=== PATIENT | male | born 1945 | race Caucasian/White ===

== ENCOUNTER 2024-01-07 07:23 | Emergency (ER) | payer OTHER, SELFPAY ==
[2024-01-07 07:24] VITALS: BP 158/93
[2024-01-07 08:09] VITALS: BP 119/84
--- NOTE | 2024-01-07 08:11 | ED.GENMED ---
History of Present Illness
General
Chief Complaint: Cardiac Symptoms
Source: patient
Time Seen by Provider: 01/07/24 07:52
History of Present Illness
History of Present Illness:
78yoM with a history of atrial fibrillation, hypertension, hyperlipidemia, and asthma presenting for evaluation of shortness of breath. Patient reports 2 months of shortness of breath. He states he will wake up around 4 to 5 AM every morning
feeling like he cannot catch his breath. His dyspnea seems to be worse if he is lying flat. He reports a dry cough as well. He denies any associated chest pain, palpitations, or leg swelling. He has a history of asthma but denies any associated
wheezing or chest tightness. Patient follows with [place] [facility] for his atrial fibrillation. He is currently maintained on Tikosyn, metoprolol, and Xarelto. He underwent cardioversion last week.
Past History
Past History
ED Past Medical History: Arrthythmia (Paroxysmal atrial fibrillation), Asthma, GERD, HTN, Hypercholesterolemia and Other (Obstructive sleep apnea; environmental allergies)
ED Past Surgical History: Cardiac (A-fib ablation 2012, 2020), Tonsilectomy and Other (Umbilical hernia repair 2015)
Social History
Tobacco: Former smoker
Alcohol: Occasional
Personal:
Living: with family
Employment: Retired
Family History
Family History: Other (Noncontributory)
Phy Exam
General Physical Exam
General Presentation: well appearing and no apparent distress
General age: appears stated age
General Skin: warm and dry
General Habitus: normal
General Mental: alert
ENT Exam
ENT Exam: normocephalic
Cardiovascular Exam
Cardiovascular Exam: regular rate/rhythm, no edema and no murmur
Pulmonary Exam
Pulmonary Exam: lungs clear, no respiratory distress, no rales, no crackles, no rhonchi and no wheezing
[place] Coma Scale
Eye Opening: Spontaneous
Verbal Response: Oriented
Motor Response: Obeys Commands
GCS Total Score: 15
Skin Exam
Skin Exam: normal color and warm/dry
Psychiatric Exam
Psychiatric Exam: normal mood/affect
Course
Orders/Labs/Results
Orders:
Orders
01/07/24 07:28
ECG [Electrocardiogram (*1)] Urgent
Reason for Study: Shortness of Breath
EKG- Treatment ONCE
01/07/24 07:56
Electrocardiogram (*1) Urgent
Reason for Study: Shortness of Breath
EKG- Treatment ONCE
01/07/24 08:08
Cardiac Monitoring- Treatment ONCE
01/07/24 08:09
CR Chest - 2 Views Urgent
Comment:
Reason For Exam: SOB
01/07/24 08:47
Complete Blood Count/With Diff Urgent
01/07/24 09:29
Comprehensive Metabolic Panel Urgent
NT-proBNP Urgent
Troponin I Urgent
Abnormal Lab Results
01/07/24 01/07/24
08:47 09:29
WBC 4.2 L 10^3/uL
(4.8-10.8)
RBC 4.23 L 10^6/uL
(4.70-6.10)
Hct 38.5 L %
(39.0-52.0)
MCH 32.2 H pg
(27.0-31.0)
Monocytes % 11.0 H %
(1.7-9.3)
Glucose 137 H mg/dl
(70-99)
Total Protein 6.0 L g/dl
(6.3-8.2)
01/07/24 08:47
01/07/24 09:29
Vital Signs
Initial and Last Documented VS:
Initial Vital Signs
Temp Pulse Resp BP Pulse Ox
98.1 F 63 18 158/93 98
01/07/24 07:24 01/07/24 07:24 01/07/24 07:24 01/07/24 07:24 01/07/24 07:24
Last Documented Vital Signs
Temp Pulse Resp BP Pulse Ox
98.1 F 65 13 112/75 96
01/07/24 07:24 01/07/24 10:30 01/07/24 10:30 01/07/24 10:00 01/07/24 10:30
MDM/Problems Addressed
Differential Diagnosis Includes:
78yoM here with SOB x 2 months. He c/o dyspnea that wakes him up from sleep every morning at 4-5am. No CP. Oxygen saturation 98% on room air. Remainder of vitals stable. He is well appearing in no distress. Lungs CTA. No peripheral edema on exam.
Differential diagnosis includes but is not limited to: pneumonia, CHF, asthma, ACS
Initial ED plan: Check cardiac labs, BNP, EKG, and CXR.
*EKG
Interpreted by ED Provider?: Yes
EKG Intrepretation Date: 01/07/24
Heart Rate: 57
Rate: bradycardiac
Rhythm: sinus
[place]: normal axis
Interval: first degree heart block
QRS Pattern: normal QRS
Ischemia: no ischemia
*Critical Care Note
Total Time (30-74mins, 75-104mins- exclusive of procedures): Not Applicable
Update Note
Update Note:
Labs overall unremarkable. BNP normal and no pulmonary edema on CXR. EKG shows sinus bradycardia without ischemic changes and troponin WNL. No episodes of hypoxia during ED stay. Unclear etiology of symptoms. He was seen by his surgical garment fitter last
week for these symptoms and he was told that he likely has sleep apnea. He has a sleep study scheduled 1-2 months from now. No indication for hospitalization. Advised f/u with PCP and welding machine operator. ED return precautions discussed. He was discharged
in stable condition.
ED Attending Note
-
Portions of this chart may have been created with voice recognition software.� Occasional wrong word or��sound alike� substitutions may have occurred due to the inherent limitations of voice recognition software.
Discharge Plan
Departure
Patient Disposition: Home (Routine Discharge)
Date of Disposition: 01/07/24
Time of Disposition: 10:35
Patient with high blood pressure during this ER visit?: No
Discharge Problem:
Shortness of breath
Instructions: Shortness of breath
Prescriptions:
No Action
lisinopril 20 MG tablet
20 mg PO DAILY
finasteride 5 MG tablet
5 mg PO DAILY
omega 1-pkc-krb-fish oil [Fish Oil] 1,200 MG capsule
1,200 mg PO DAILY
atorvastatin 80 mg Tablet
80 mg PO DAILY
amlodipine 2.5 mg Tablet
2.5 mg PO DAILY
montelukast 10 mg Tablet
10 mg PO DAILY
Zyrtec 10 mg Capsule
10 mg PO DAILY
fluticasone propionate 50 mcg/actuation Blister With Device
1 inh INHALATION DAILY
albuterol sulfate [ProAir HFA] 90 mcg/actuation Hfa Aerosol Inhaler
2 puff INHALATION PRN PRN (Reason: SOB)
Xarelto 20 mg Tablet
20 mg PO DAILY
fluticasone furoate-vilanterol [Breo Ellipta] 200-25 mcg/dose Blister With Device
1 inh INHALATION DAILY
metoprolol succinate 50 mg Tablet Extended Release 24 Hr
50 mg PO HS Qty: 30 11RF
metoprolol succinate 100 mg Tablet Extended Release 24 Hr
100 mg PO DAILY Qty: 30 11RF
dofetilide [Tikosyn] 250 mcg capsule
250 mcg PO Q12H Qty: 60 11RF
Referrals:
Yevgeniy Unger DO [Family Provider] -
Activity Restrictions/Additional Instructions:
Please follow-up with your family doctor and your welding machine operator. Return to the ER with any new or worsening symptoms.
Interventions
Interventions:
*Risk Screen - Suicide Last Done: 01/07/24 08:53
*General Assessment Last Done: 01/07/24 08:53
*Neglect/Abuse Screening Last Done: 01/07/24 08:53
ED- Fall Risk Assessment Last Done: 01/07/24 08:53
*ED COVID-19 Vaccine History Last Done: 01/07/24 08:53
*Nursing Disposition Last Done: 01/07/24 10:40
ED- Cardiac Assessment Last Done: 01/07/24 08:53
ED- Pulmonary Assessment Last Done: 01/07/24 08:53
Discharge Date and Time
Discharge Date/Time: 01/07/24 10:40
Print Language: HONG KONGER
[2024-01-07 09:00] VITALS: BP 120/82
[2024-01-07 09:00] LABS: % Basophils 0.2 % (0-2); % Eosinophils 3.1 % (0-6); % Immature Granulocytes 0.5 % (0-0.5); % Neutrophils 57.2 % (42.2-75.2); Absolute Eosinophils 0.1 10^3/uL (0-0.7); Absolute Lymphocytes 1.2 10^3/uL (1.2-3.4); Absolute Monocytes 0.5 10^3/uL (0.1-0.6); Absolute Neutrophils 2.4 10^3/uL (1.4-6.5); Hematocrit 38.5 % (39.0-52.0); Hemoglobin 13.6 g/dL (13.0-18.0); Mean Corp Hgb Conc. 35.3 g/dL (33.0-37.0); Mean Corpuscular Hgb 32.2 pg (27.0-31.0); Nucleated Red Blood Cells % 0 % (-); Red Blood Cell Count 4.23 10^6/uL (4.70-6.10); Red Cell Dist. Width 12.5 % (11.5-14.5); White Blood Cell Count 4.2 10^3/uL (4.8-10.8)
[2024-01-07 09:58] LABS: ALT (SGPT) 22 U/L (0-50); AST (SGOT) 23 U/L (17-59); Alkaline Phosphatase 62 U/L (38-126); Blood Urea Nitrogen 18 mg/dl (9-20); Calcium 9.3 mg/dl (8.4-10.2); Carbon Dioxide 23 mmol/L (22-30); Chloride 105 mmol/L (98-107); Glucose 137 mg/dl (70-99); Potassium 4.1 mmol/L (3.5-5.1); Sodium 137 mmol/L (135-145); eGFR > 60.00
[2024-01-07 10:00] VITALS: BP 112/75
[2024-01-07 10:11] LABS: NT-proBNP 259 pg/ml; Troponin I < 0.012 ng/ml
== END 2024-01-07 10:40 | disposition home or self-care (01) ==
LOC: EMR 07:23
PROVIDERS: Physician Assistant; EMERGENCY PHYSICIAN Emergency Medicine; FAMILY PHYSICIAN Internal Medicine
DX: R06.02 Shortness of breath (principal); I48.0 Paroxysmal atrial fibrillation; I10 Essential (primary) hypertension; G47.33 Obstructive sleep apnea (adult) (pediatric); J45.909 Unspecified asthma, uncomplicated; E78.00 Pure hypercholesterolemia, unspecified; K21.9 Gastro-esophageal reflux disease without esophagitis; Z87.891 Personal history of nicotine dependence; Z79.01 Long term (current) use of anticoagulants; Z79.899 Other long term (current) drug therapy; Z91.048 Other nonmedicinal substance allergy status
CPT/HCPCS: 99284; 71046; 80053; 83880; 84484; 85025; 93005

== ENCOUNTER 2024-12-12 12:59 | Inpatient (IN) | payer OTHER, SELFPAY ==
--- NOTE | 2024-12-12 08:00 | W.PN.UPDATE ---
Update Note
Progress Note Update
Mr. Floyd presents in a 2-1 atypical atrial flutter�tachycardia. He admits to increased EtOH use recently. He is on dofetilide 125 mcg every 12 and after cardioversion we will plan increasing his dofetilide to 250 mcg every 12 hours. He will
work on EtOH reduction in his life. If he has further arrhythmia amiodarone or an atypical atrial flutter ablation could be considered and I would favor an atypical atrial flutter ablation. He will stay 1 night for 3 doses of dofetilide 250 mcg
every 12.
[2024-12-12 11:03] LABS: Hematocrit 41.3 % (39.0-52.0); Hemoglobin 13.9 g/dL (13.0-18.0); Mean Corp Hgb Conc. 33.7 g/dL (33.0-37.0); Mean Corpuscular Volume 96.5 fL (80.0-94.0); Platelet Count 118 10^3/uL (130-400); Red Cell Dist. Width 13.0 % (11.5-14.5)
[2024-12-12 11:18] LABS: ALT (SGPT) 26 U/L (0-50); AST (SGOT) 30 U/L (17-59); Albumin 4.4 g/dl (3.5-5.0); Alkaline Phosphatase 89 U/L (38-126); Blood Urea Nitrogen 24 mg/dl (9-20); Calcium 9.7 mg/dl (8.4-10.2); Carbon Dioxide 24 mmol/L (22-30); Chloride 108 mmol/L (98-107); Glucose 148 mg/dl (70-99); Magnesium 2.2 mg/dl (1.6-2.3); Potassium 4.5 mmol/L (3.5-5.1); Sodium 138 mmol/L (135-145); Total Protein 6.8 g/dl (6.3-8.2); eGFR > 60.00
--- NOTE | 2024-12-12 11:58 | W.CARD.TIKOS ---
Initiate Tikosyn
-
I verify that the patient has not taken any verapamil (Isoptin/Calan), ketoconazole (Nizoral), cimetidine (Tagamet), trimethoprim (Trimpex), trimethoprim/sulfamethoxazole (Bactrim), megesterol (Megace), prochlorperazine (Compazine),
hydrochlorothiazide (HCTZ), dolutegravir (Tivicay) or any Class I or Class III anti-arrhythmic within the last three days
AND
I verify that the patient has not taken amiodarone within the last THREE months, or that the patient's amiodarone plasma concentration is <0.3 mcg/mL.
Creatinine 0.7 mg/dL (0.7-1.3) 12/12/24 10:42
CrCl 133 calculated by me
Does patient have a Ventricular Conduction Abnormality: No
I have assessed the baseline QTc interval (using QT for heart rate less than 60 bpm) and deemed the patient is appropriate for Dofetilide therapy. I understand that Tikosyn is contraindicated if the QTc is >440msec (500msec in patients with
ventricular conduction abnormalities).
Baseline QTc (in msec): 450
QTc interval is greater than 440msec without conduction abnormality OR greater than 500msec with a conduction abnormality, but acceptable to proceed per Cardiology attending.
Reason for Administration with Prolonged QTc: Other Atrial Arrhythmia
Ordering Physician: Hernando Gomes
--- NOTE | 2024-12-12 12:12 | ITS.CL.CARDI ---
General Internal Medicine Physician - Cardioversion
Cardioversion
Procedure Report:
Date of Procedure:
Procedure: Cardioversion
Indication: Symptomatic atrial flutter
Performing Physician: Donna Edmondson DO [facility]
Anticoagulation: Xarelto
Antiarrhythmic therapy: Tikosyn
Technique: The patient was brought to the holding area. Signed informed consent was obtained. A time out was called and performed. The patient was anesthetized by the anesthesia service. Anticoagulation status was reviewed and appropriate. R2 pads
were placed anteriorly and posteriorly. A 200 J synchronized biphasic shock followed by a second attempt at 300J restored normal sinus rhythm without significant bradycardia. There were no complications. Post procedure EKG: Sinus rhythm with
first-degree AV block, QTc 450 ms.
Conclusion: Uncomplicated cardioversion from atypical atrial flutter to sinus rhythm.
Recommendation: Will admit for Tikosyn dose adjustment. Routine postprocedure care. Continue uninterrupted anticoagulation.
[2024-12-12 13:22] VITALS: BP 130/100; BMI 31.9
[2024-12-12 13:24] VITALS: BP 133/102
--- NOTE | 2024-12-12 13:30 | PTCARENOTE ---
pt admitted to room 2244 post cardioversion. Pt AAOX3, ambulating independently in room. Sinus rhythm on telemetry heart rate in 60-70s. pulses palpable. pt on room air, sat 98%. lung sounds clear. active bowel sounds. voiding in bathroom without
difficulty. pt updated on plan of care for increase in Tikosyn dose and timing of doses with ECGs.
--- NOTE | 2024-12-12 14:09 | W.PN.UPDATE ---
Update Note
Progress Note Update
Patient took his usual dose of Tikosyn 125 mcg every 12 hours at 0530 this morning. Patient then had successful CV and is now admitted for up titration of Tikosyn with a goal dose of 250 mcg every 12 hours. Will give first dose of Tikosyn 250 mcg
at 1600 this afternoon, second dose of Tikosyn 250 mcg at 0300 on Monday morning and the third and final dose will be given at 1400 on Monday afternoon. This is in an effort to get patient out for a concert he had planned to attend.
[2024-12-12 14:39] VITALS: BMI 31.9
[2024-12-12 15:18] VITALS: BP 114/81
[2024-12-12] MEDS: TIKOSYN 250 MCG PO (15:46)
[2024-12-12] MEDS: NORVASC 2.5 MG PO (15:47)
--- NOTE | 2024-12-12 17:25 | W.PN.CARDCBS ---
Addendum entered and electronically signed by Donna Edmondson DO 12/12/24 17:37:
I saw and examined the patient.
The Casing Fluid Tender's note was reviewed and I agree with the note.
Comment:
Patient seen and examined prior to planned cardioversion followed by admission for Tikosyn dose adjustment. Patient has a history of paroxysmal atrial flutter/fibrillation currently in atypical atrial flutter. No interruption of anticoagulation.
DC cardioversion successful after 2 attempts to sinus rhythm without complications. Will admit for Tikosyn dose adjustment. Lab work ordered. Pending lab work will plan to increase Tikosyn to 250 mcg twice daily with protocol EKG and telemetry
monitoring. Continue uninterrupted Xarelto. Case discussed with Dr. Gomes
General: No acute distress, AAOX3
Heart: Irregularly irregular. Positive S1-S2. No murmurs.
Lungs: CTA b/l, negative wheezes/rales/rhonchi
Abd: Positive BS, NT/ND, neg rebound/rigidity/guarding
Ext: Negative cyanosis/clubbing/edema
Neuro: nonfocal
Original Note:
Today's Communication / Plan
-
Increased Tikosyn dose to start this afternoon
Impression / Plan
-
PCP: Yevgeniy Unger
Primary hogshead wrecker: Dr. Arnold at [facility] cardiology
[place]: Dr. Hernando Gomes
Impression:
Admit for initiation uptitration of Tikosyn 12/12/24
s/p successful CV 12/12/24
Symptomatic Paroxysmal atrial flutter
Status post ablation of typical CTI flutter 04/30/2020
Paroxysmal atrial fibrillation
Status post PVI ablation 2012
Chronic anticoagulation with Xarelto
Hypertension
Hyperlipidemia
BPH
RAYRAY
Asthma
Anxiety
Plan:
-Patient previously loaded with Tikosyn 04/2023, but recurred with symptomatic Atach or flutter end of September and was recommended CV and admission for uptitration of Tikosyn to 250 mcg q 12 hours.
-Patient took his usual dose of Tikosyn 125 mcg 12/12/24 AM, so will start Tikosyn 250 mcg 12/12/24 PM.
-Patient reports that he was expecting to be d/c'd 12/13/24 AM, so will give Tikosyn 250 mcg at 1600 on 12/12/24 and then 0300 12/13/24 AM and 1400 12/13/24 afternoon and if ECG stable 2 hours later then he can be d/c'd.
-Continue Xarelto 20 mg daily
Progress Note - Chief Nurse
Subjective
Date of Service: December 12, 2024
Feels well, no pain following CV
Objective
Labs:
12/12/24 10:42
12/12/24 10:42
Labs
Hgb 13.9 g/dL (13.0-18.0) 12/12/24 10:42
Hct 41.3 % (39.0-52.0) 12/12/24 10:42
Plt Count 118 10^3/uL (130-400) L 12/12/24 10:42
Sodium 138 mmol/L (135-145) 12/12/24 10:42
Potassium 4.5 mmol/L (3.5-5.1) 12/12/24 10:42
BUN 24 mg/dl (9-20) H 12/12/24 10:42
Creatinine 0.7 mg/dL (0.7-1.3) 12/12/24 10:42
Glucose 148 mg/dl (70-99) H 12/12/24 10:42
Vital Signs and I&O:
Vital Signs
Temp Pulse Resp BP Pulse Ox
98.1 F 72 18 114/81 98
12/12/24 15:19 12/12/24 16:00 12/12/24 15:19 12/12/24 15:47 12/12/24 16:21
Vital Signs
Temp Pulse Resp BP Pulse Ox
98.1 F 72 18 114/81 98
12/12/24 15:19 12/12/24 16:00 12/12/24 15:19 12/12/24 15:47 12/12/24 16:21
Intake & Output
12/10/24 12/11/24 12/12/24 12/13/24
06:59 06:59 06:59 06:59
Intake Total 480 / 480
Balance 480 / 480
Physical Exam
Physical Exam
GEN: No distress, awake, Ox3
HEENT: supple, anicteric, mmm
LUNGS: RA. No wheeze
CV: SR on tele. Reg
[2024-12-12] MEDS: LIPITOR 80 MG PO (17:46)
[2024-12-12 18:51] VITALS: BP 140/98
[2024-12-12] MEDS: TOPROL XL 50 MG PO (21:00)
[2024-12-12] MEDS: ZESTRIL 10 MG PO (21:01)
[2024-12-12 22:34] VITALS: BP 121/95
[2024-12-13 02:11] VITALS: BMI 31.9
[2024-12-13 02:55] VITALS: BP 121/87
[2024-12-13] MEDS: TIKOSYN 250 MCG PO ×2 (02:56→14:01)
[2024-12-13 03:42] LABS: Blood Urea Nitrogen 23 mg/dl (9-20); Calcium 9.2 mg/dl (8.4-10.2); Carbon Dioxide 27 mmol/L (22-30); Chloride 107 mmol/L (98-107); Estimated Creatinine Clearance 98 ml/min; Glucose 110 mg/dl (70-99); Potassium 4.2 mmol/L (3.5-5.1); Sodium 139 mmol/L (135-145); eGFR > 60.00
[2024-12-13 04:30] LABS: Hepatitis C Antibody Negative (Negative)
--- NOTE | 2024-12-13 05:23 | PTCARENOTE ---
Pt NSR with 1st HB on monitor VSS. Pt received 2nd dose of Tikosyn. Pt denies any discomfort. Ambulates independently. Call goss w/in reach
[2024-12-13] MEDS: NORVASC 2.5 MG PO (08:36)
[2024-12-13] MEDS: PROSCAR 5 MG PO (08:36)
[2024-12-13] MEDS: ZESTRIL 10 MG PO (08:36)
[2024-12-13] MEDS: TOPROL XL 100 MG PO (08:36)
--- NOTE | 2024-12-13 09:54 | W.PN.UPDATE ---
Update Note
Progress Note Update
Full note to follow.
Presuming that QTc interval is normal after this afternoon's electrocardiogram, okay for discharge
Recommended medications at discharge:
Amlodipine 2.5 mg daily
Atorvastatin 80 mg daily
Lisinopril 10 mg twice daily
Metoprolol ER 100 mg a.m. and 50 mg p.m.
Rivaroxaban 20 mg daily
Dofetilide 250 mcg twice daily
If QT interval is prolonged, will need to reconsider
--- NOTE | 2024-12-13 12:17 | W.PN.CARDCBS ---
Addendum entered and electronically signed by Efrain Boss MD 12/13/24 18:27:
He offers no complaints
119/95, pulse 68, respiratory 15, weight is 106.6 kg, head neck exam unremarkable lungs are clear, regular rate and rhythm, abdomen benign, extremities without clubbing cyanosis or edema
ECG today: Sinus rhythm, QTc is 447 mV, heart rate 56 first-degree AV block
Hemoglobin is 13.9, platelets 118, potassium is 4.2, BUN and creatinine are 23 and 0.8
Impression:
Paroxysmal atrial fibrillation status post cardioversion December 12, 2024 admitted now for up titration of dofetilide
Status post PVI for A-fib in 2012, flutter ablation 2020
Hypertension
Hyperlipidemia
Sleep apnea
Asthma
Anxiety
Plan:
At present he looks well and his QTc on higher dose dofetilide is acceptable.
Will continue to observe. If QTc is acceptable after this afternoon's dose, okay for discharge.
We will arrange for cardiac follow-up.
Addendum entered and electronically signed by Cecy Devries PA-C 12/13/24 16:04:
[id number]
Original Note:
Today's Communication / Plan
-
Continue Tikosyn 250 mcg every 12 hours, tolerating thus far
Plan for discharge to home later today after third dose if QTc stable
Impression / Plan
-
PCP: Yevgeniy Unger
Primary media services specialist: Dr. Arnold at [facility] cardiology
Reconciliation Coordinator: Dr. Hernando Gomes
Impression:
Admit for initiation uptitration of Tikosyn 12/12/24
s/p successful CV 12/12/24
Symptomatic Paroxysmal atrial flutter
Status post ablation of typical CTI flutter 04/30/2020
Paroxysmal atrial fibrillation
Status post PVI ablation 2012
Chronic anticoagulation with Xarelto
Hypertension
Hyperlipidemia
BPH
RAYRAY
Asthma
Anxiety
Plan:
-Patient previously loaded with Tikosyn 04/2023, but recurred with symptomatic Atach or flutter end of September and was recommended CV and admission for uptitration of Tikosyn to 250 mcg q 12 hours.
-s/p CV 12/12/24, successful
-has remained in SB on review of tele overnight with HRs in 50s-60s
-QTc stable on 250mcg of tikosyn thus far. if stable after 3rd dose this afternoon, ok for DC to home
-On Toprol 100 mg every morning and 50 mg every afternoon, lisinopril 10 mg twice daily, Norvasc 2.5 mg daily. Blood pressures stable.
-Continue Xarelto 20 mg daily
-will arrange OP cardiac follow up
-total DC time 33 minutes
Progress Note - Civil Draftsman
Subjective
Date of Service: December 13, 2024
Feeling well. Denies chest pain, shortness of breath, dizziness
Objective
Labs:
12/12/24 10:42
12/13/24 03:02
Labs
Hgb 13.9 g/dL (13.0-18.0) 12/12/24 10:42
Hct 41.3 % (39.0-52.0) 12/12/24 10:42
Plt Count 118 10^3/uL (130-400) L 12/12/24 10:42
Sodium 139 mmol/L (135-145) 12/13/24 03:02
Potassium 4.2 mmol/L (3.5-5.1) 12/13/24 03:02
BUN 23 mg/dl (9-20) H 12/13/24 03:02
Creatinine 0.8 mg/dL (0.7-1.3) 12/13/24 03:02
Glucose 110 mg/dl (70-99) H 12/13/24 03:02
Vital Signs and I&O:
Vital Signs
Temp Pulse Resp BP Pulse Ox
97.7 F 68 15 119/95 98
12/13/24 07:28 12/13/24 08:36 12/13/24 07:28 12/13/24 08:36 12/13/24 07:28
Vital Signs
Temp Pulse Resp BP Pulse Ox
97.7 F 68 15 119/95 98
12/13/24 07:28 12/13/24 08:36 12/13/24 07:28 12/13/24 08:36 12/13/24 07:28
Intake & Output
12/11/24 12/12/24 12/13/24 12/14/24
07:59 07:59 07:59 07:59
Intake Total 480 / 480
Balance 480 / 480
Physical Exam
Physical Exam
GEN: No distress, awake, alert, oriented x3. Sitting in chair
HEENT: supple, anicteric, mmm, EOMI
LUNGS: CTA bilaterally, no wheezes/rales
CV: Reg, S1/S2, no murmur
ABD: soft, BS+, NT/ND
EXT: No cyanosis, clubbing, edema
NEURO: Gross non-focal
SKIN: Warm, pink, dry. No rash
--- NOTE | 2024-12-13 12:25 | CM ---
spoke to pt in room, he is prev indep,, lives with his in a 2 story home with a first floor set up. he denies any dc planning needs or dmes'. pplan is for dc to home when medically stable.
--- NOTE | 2024-12-13 12:29 | W.DS.TRANS ---
DC Summary - Wet End Operator
-
Discharge Instructions:
Discharge Diagnosis/Procedures afib, cardioversion, tikosyn load
Diet Low Cholesterol
Activity As tolerated
Driving Restrictions No driving for 24 hours
Instructions:
Stand-Alone Forms:
Changes to Home Medications: Yes
Discharge Medications:
DC Medications w/original date entered in Imaging[facility]
finasteride 5 mg tablet 5 mg PO DAILY Urinary Issue 04/30/20
lisinopril 20 mg tablet 10 mg PO BID Blood Pressure 04/30/20
omega 4-ygx-wxt-fish oil 1,200 mg (144 mg-216 mg) capsule (Fish Oil) 1,200 mg PO DAILY High Cholesterol 04/30/20
albuterol sulfate 90 mcg/actuation aerosol inhaler (ProAir HFA) 2 puff inhalation PRN PRN SOB 08/15/22
amlodipine 2.5 mg tablet 2.5 mg PO DAILY Blood Pressure 08/15/22
atorvastatin 80 mg tablet 80 mg PO DAILY High Cholesterol 08/15/22
cetirizine 10 mg capsule (Zyrtec) 10 mg PO DAILY Allergies 08/15/22
fluticasone propionate 50 mcg/actuation blister powder for inhalation 1 inh inhalation DAILY Lung/Breathing Issues 08/15/22
montelukast 10 mg tablet 10 mg PO DAILY Allergies 08/15/22
fluticasone furoate 200 mcg-vilanterol 25 mcg/dose inhalation powder (Breo Ellipta) 1 inh inhalation DAILY Lung/Breathing Issues 04/24/23
rivaroxaban 20 mg tablet (Xarelto) 20 mg PO DAILY Blood Clot Prevention/Tx 04/24/23
dofetilide 250 mcg capsule (Tikosyn) 250 mcg PO Q12H #180 caps 12/13/24
metoprolol succinate 100 mg tablet,extended release 24 hr 100 mg PO DAILY Blood Pressure 12/13/24
metoprolol succinate 50 mg tablet,extended release 24 hr 50 mg PO HS Blood Pressure 12/13/24
Home Medication Changes
tikosyn dose has increased
Pending Results: No
--- NOTE | 2024-12-13 16:28 | PTCARENOTE ---
~4212-3512: Handoff report received from nightshift RN. Pt AOx4, NSR 1st degree AVB on tele 60s, SBP 110s, RA satting 98%. Pt denies pain at this time. Independent in room and to bathroom. All needs met at this time, call goss within reach.
~9063-2629: Patient independent in room. Patient showered independently. VSS. All needs met at this time, call goss within reach.
~5773-6532: EKG obtained per protocol for QTC monitoring. QTC WNL and cleared by cardiology. NOAH rodriguez reviewed with patient, all questions answered and patient d/c'd from unit in stable condition.
== END 2024-12-13 16:29 | disposition home or self-care (01) | DRG 310 ==
LOC: IVU 12:59
PROVIDERS: Physician Assistant Medical; ADMITTING PHYSICIAN Internal Medicine Cardiovascular Disease; ATTENDING PHYSICIAN Internal Medicine Cardiovascular Disease; FAMILY PHYSICIAN Internal Medicine
PROC: 3E0DXRZ Introduction of Antiarrhythmic into Mouth and Pharynx, External Approach (ICD-10-PCS; 2024-12-12)
PROC: 5A2204Z Restoration of Cardiac Rhythm, Single (ICD-10-PCS; 2024-12-12)
DX: I48.0 Paroxysmal atrial fibrillation (principal); I10 Essential (primary) hypertension; E78.5 Hyperlipidemia, unspecified; G47.33 Obstructive sleep apnea (adult) (pediatric); J45.909 Unspecified asthma, uncomplicated; F41.9 Anxiety disorder, unspecified; N40.0 Benign prostatic hyperplasia without lower urinary tract symptoms; Z79.01 Long term (current) use of anticoagulants
CPT/HCPCS: 80048; 80053; 83735; 85027; 86803; 92960; 93005